=== PATIENT | male | born 1985 | race Caucasian/White ===

== ENCOUNTER 2017-08-18 09:16 | Emergency (ER) | payer BC ==
[2017-08-18 09:39] VITALS: RESP 20; TEMP 98.2
[2017-08-18 09:51] VITALS: PULSE 98
[2017-08-18 10:06] VITALS: BP 139/100; O2SAT 98
== END 2017-08-18 10:25 | disposition home or self-care (01) ==
LOC: ED 09:16
DX: J06.9 Acute upper respiratory infection, unspecified (principal)
CPT/HCPCS: 87804; 99282

== ENCOUNTER 2018-06-18 15:07 | Inpatient (IN) | payer BC ==
[2018-06-18] MEDS: SODIUM CHLORIDE 0.9% 1000ML 1,000 ML IV SCH ×3 (15:44→21:49)
[2018-06-18 15:47] LABS: BASOPHILS % (AUTO) 1 % (0-3); EOSINOPHILS % (AUTO) 2 % (0-9); HEMATOCRIT 46 % (39-53); HEMOGLOBIN 15.8 gm/dl (13.5-17.7); MEAN CORPUSCULAR HEMOGLOBIN 29.2 pg (27.0-32.0); MEAN CORPUSCULAR HGB CONC 34.3 gm/dl (32.0-36.0); MEAN CORPUSCULAR VOLUME 85 fL (80-100); MONOCYTES % (AUTO) 9.4 % (0-12); NEUTROPHILS % (AUTO) 64.4 % (37-80)
[2018-06-18 15:59] LABS: APPEARANCE,URINE Clear; BILIRUBIN,URINE NEGATIVE (NEGATIVE); COLOR,URINE Yellow; GLUCOSE, URINE (UA) 3+ (NEGATIVE); KETONES,URINE TRACE (NEGATIVE); LEUKOCYTE ESTERASE ,URINE NEGATIVE (NEGATIVE); NITRATE,URINE NEGATIVE (NEGATIVE); OCCULT BLOOD,URINE TRACE INTACT (NEG-TRACE); PH,URINE 5.5; UROBILINOGEN,URINE 0.2 (0.2-1.0 EU)
[2018-06-18 16:07] LABS: ALBUMIN 3.9 gm/dl (3.4-5.0); ALKALINE PHOSPHATASE 94 IU/L (46-116); BILIRUBIN,TOTAL 0.9 mg/dl (0.2-1.0); BLOOD UREA NITROGEN 17 mg/dl (7-18); CALCIUM 9.3 mg/dl (8.5-10.1); CARBON DIOXIDE 25.9 mEq/L (21-32); CHLORIDE 96 mMol/L (98-107); CREATININE 1.42 mg/dl (0.80-1.30); MAGNESIUM 1.8 mg/dl (1.8-2.4); POTASSIUM 4.1 mMol/L (3.5-5.1); SODIUM 133 mMol/L (136-145)
[2018-06-18] MEDS ORDERED: INSULIN HUMAN REGULAR 100 U/ML SOL IV ONE (16:07)
[2018-06-18 16:09] LABS: GLUCOSE 657 mg/dl (74-106)
[2018-06-18 16:10] LABS: HEMOGLOBIN A1C 9.5 % (4.8-6.0)
[2018-06-18 16:18] LABS: BACTERIA NEGATIVE (< 1+); CRYSTALS NEGATIVE (0-3 AVE/HPF); EPITHELIAL CELLS NEGATIVE (SQUAMOUS); RBC,URINE NEG (0-3AV/HPF); WBC,URINE NEG (0-5AV/HPF)
[2018-06-18] MEDS ORDERED: INSULIN HUMAN REGULAR 100 U/ML SOL ONE (16:20)
[2018-06-18 16:35] LABS: ALT 93 IU/L (14-63); AST 39 IU/L (15-37)
[2018-06-18] MEDS ORDERED: LABETALOL HYDROCHLORIDE 5 MG/ML SOL IV ONE ×4 (16:47→17:48)
[2018-06-18] MEDS ORDERED: NOVOLOG FLEXPEN SC ONE (18:41)
[2018-06-18] MEDS ORDERED: SODIUM CHLORIDE 0.9% 1000ML 1,000 ML IV ONE (19:05)
[2018-06-18] MEDS: LISINOPRIL 20 MG TAB PO SCH (19:29)
[2018-06-18] MEDS: AMLODIPINE 5 MG TAB PO SCH (19:29)
[2018-06-18] MEDS ORDERED: PATIENT EDUCATION 1 MISC PRN (20:47)
[2018-06-18] MEDS: NOVOLOG FLEXPEN SC SCH (21:00)
[2018-06-18 21:33] VITALS: RESP 16
[2018-06-19] MEDS: NOVOLOG FLEXPEN SC SCH ×5 (09:05→21:35)
[2018-06-19 09:10] LABS: BASOPHILS % (AUTO) 1 % (0-3); EOSINOPHILS % (AUTO) 3 % (0-9); HEMATOCRIT 43 % (39-53); HEMOGLOBIN 14.6 gm/dl (13.5-17.7); LYMPHOCYTES % (AUTO) 22.2 % (10-50); MEAN CORPUSCULAR HEMOGLOBIN 28.8 pg (27.0-32.0); MEAN CORPUSCULAR HGB CONC 34.1 gm/dl (32.0-36.0); MEAN CORPUSCULAR VOLUME 84 fL (80-100); MONOCYTES % (AUTO) 9.7 % (0-12); NEUTROPHILS % (AUTO) 63.8 % (37-80)
[2018-06-19 09:13] LABS: CALCIUM 8.5 mg/dl (8.5-10.1); CARBON DIOXIDE 26.7 mEq/L (21-32); CREATININE 1.02 mg/dl (0.80-1.30); POTASSIUM 3.8 mMol/L (3.5-5.1)
[2018-06-19] MEDS: AMLODIPINE 5 MG TAB PO SCH (09:13)
[2018-06-19] MEDS: LISINOPRIL 20 MG TAB PO SCH (09:13)
[2018-06-19] MEDS: INSULIN GLARGINE, RECOMBINAN 100 U/ML SOL SC SCH (10:14)
[2018-06-19] MEDS: METFORMIN HYDROCHLORIDE 500 MG TAB PO SCH ×2 (10:24→18:04)
[2018-06-19] MEDS: SODIUM CHLORIDE 0.9% FLUSH 10 ML SOL IV SCH ×2 (11:50→21:33)
[2018-06-20] MEDS: SODIUM CHLORIDE 0.9% FLUSH 10 ML SOL IV SCH (06:44)
[2018-06-20 07:34] LABS: BASOPHILS % (AUTO) 1 % (0-3); EOSINOPHILS % (AUTO) 3 % (0-9); HEMATOCRIT 42 % (39-53); HEMOGLOBIN 14.6 gm/dl (13.5-17.7); LYMPHOCYTES % (AUTO) 27.1 % (10-50); MEAN CORPUSCULAR HEMOGLOBIN 29.3 pg (27.0-32.0); MEAN CORPUSCULAR HGB CONC 34.4 gm/dl (32.0-36.0); MEAN CORPUSCULAR VOLUME 85 fL (80-100); MONOCYTES % (AUTO) 10.9 % (0-12); NEUTROPHILS % (AUTO) 57.3 % (37-80)
[2018-06-20 07:58] LABS: BLOOD UREA NITROGEN 12 mg/dl (7-18); CALCIUM 8.9 mg/dl (8.5-10.1); CARBON DIOXIDE 26.1 mEq/L (21-32); CHLORIDE 101 mMol/L (98-107); CHOLESTEROL 162 mg/dl (120-200); CREATININE 0.94 mg/dl (0.80-1.30); GLUCOSE 266 mg/dl (74-106); HDL CHOLESTEROL 27 mg/dl (40-60); POTASSIUM 3.7 mMol/L (3.5-5.1); SODIUM 137 mMol/L (136-145)
[2018-06-20 08:22] VITALS: BP 165/112; PULSE 81; TEMP 97.6; O2SAT 98
[2018-06-20] MEDS ORDERED: INSULIN GLARGINE, RECOMBINAN 100 U/ML SOL SC SCH (08:22)
[2018-06-20] MEDS: AMLODIPINE 5 MG TAB PO SCH (08:23)
[2018-06-20] MEDS: METFORMIN HYDROCHLORIDE 500 MG TAB PO SCH (08:23)
[2018-06-20] MEDS: LISINOPRIL 20 MG TAB PO SCH (08:24)
[2018-06-20] MEDS: NOVOLOG FLEXPEN SC SCH ×2 (08:43→11:59)
[2018-06-20] MEDS ORDERED: HYDROCHLOROTHIAZIDE 25 MG TAB PO SCH (09:00)
[2018-06-20] MEDS: INSULIN GLARGINE, RECOMBINAN 100 U/ML SOL SC SCH (10:22)
== END 2018-06-20 15:15 | disposition home or self-care (01) | DRG 420 ==
LOC: ED 15:07 → UNDOADMIN 18:13 → ACUTE CARE 18:13
PROVIDERS: ADMIT Family Medicine; ATTEND Family Medicine
DX: E11.8 Type 2 diabetes mellitus with unspecified complications (principal); N17.9 Acute kidney failure, unspecified; I10 Essential (primary) hypertension
CPT/HCPCS: 36415; 80048; 80053; 80061; 81001; 82009; 82800; 82962; 83036; 83735; 84100; 85025; 93005; 96365; 96366; 96374; 96375; 99283; 99285; J1815; J1817; A9270-GY; J3490